=== PATIENT | male | born 1985 | race Caucasian/White ===

== ENCOUNTER 2022-10-08 13:16 | Emergency (ER) | payer MEDICAID ==
[~2022-10-08] VITALS: Ht 180.3 cm; Wt 75.0 kg
[2022-10-08 13:34] VITALS: BP 161/103
== END 2022-10-08 13:38 | disposition home or self-care (01) ==
LOC: EMS 13:19
DX: T40.601A Poisoning by unspecified narcotics, accidental (unintentional), initial encounter (principal); R40.4 Transient alteration of awareness; F17.210 Nicotine dependence, cigarettes, uncomplicated; Y92.89 Other specified places as the place of occurrence of the external cause
CPT/HCPCS: 99281; Z7502